=== PATIENT | female | born 2000 | race Caucasian/White ===

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

== ENCOUNTER 2018-11-24 11:10 | Emergency (ER) | payer OTHER ==
[2018-11-24 11:37] VITALS: BP 105/65
--- NOTE | 2018-11-24 12:35 | UC ---
UC General HPI - HPI Summary HPI Summary: pt c/o a sore throat and swollen tonsils since yesterday. + muffled voice. states hx of tonsillitis with muffled voice and often needs steroids and antibiotics. no trouble breathing or swallowing - History of Current Complaint Chief Complaint: UCGeneralIllness Stated Complaint: ST Time Seen by Provider: 11/24/18 12:29 Hx Obtained From: Patient Hx Last Menstrual Period: 11/24/18 Onset/Duration: Gradual Onset Timing: Constant Pain Intensity: 4 Associated Signs & Symptoms: Negative: SOB - Allergy/Home Medications Allergies/Adverse Reactions: Allergies Allergy/AdvReac Type Severity Reaction Status Date / Time No Known Allergies Allergy Verified 11/24/18 11:34 PMH/Surg Hx/FS Hx/Imm Hx Previously Healthy: Yes - Surgical History Surgical History: None - Family History Known Family History: Negative: Cardiac Disease, Hypertension, Diabetes - Social History Occupation: Student Lives: Dormitory/Roommates Alcohol Use: Occasionally Substance Use Type: None Smoking Status (MU): Never Smoked Tobacco - Immunization History Vaccination Up to Date: Yes Review of Systems All Other Systems Reviewed And Are Negative: Yes Constitutional: Negative: Fatigue Skin: Positive: Negative Eyes: Positive: Negative ENT: Positive: Sore Throat Respiratory: Positive: Negative Cardiovascular: Positive: Negative Gastrointestinal: Positive: Negative Genitourinary: Positive: Negative Motor: Positive: Negative Neurovascular: Positive: Negative Musculoskeletal: Positive: Negative Neurological: Positive: Negative Psychological: Positive: Negative Physical Exam Triage Information Reviewed: Yes Appearance: Well-Appearing Vital Signs: Initial Vital Signs Temp 97 F 11/24/18 11:34 Pulse 91 11/24/18 11:34 Resp 17 11/24/18 11:34 BP 105/65 11/24/18 11:34 Pulse Ox 98 11/24/18 11:34 Vital Signs Reviewed: Yes Eyes: Positive: Conjunctiva Clear ENT: Positive: Pharyngeal erythema, TMs normal, Tonsillar swelling - R>L, Tonsillar exudate - R, Muffled voice, Uvula midline. Negative: Nasal congestion , Nasal drainage, Trismus, Hoarse voice Neck: Positive: Supple, Tenderness @ - peritonsilar nodes, Enlarged Nodes @ - peritonsilar nodes Respiratory: Positive: Lungs clear, Normal breath sounds Cardiovascular: Positive: RRR, No Murmur Abdomen Description: Positive: Nontender, No Organomegaly, Soft Bowel Sounds: Positive: Present Musculoskeletal: Positive: ROM Intact Neurological: Positive: Alert Psychological: Positive: Age Appropriate Behavior Skin Exam: Normal Diagnostics - Laboratory Diagnostic Studies Completed/Ordered: rapid strep= Course/Dx - Course Course Of Treatment: no uvular shift or trouble swallowing. there is mild asymmetrical swelling and some muffled voice plus rapid strep is + thus I am going to tx for a bacterial infection and add a steroid for the swelling. There is no concern for an abscess at this time. - Differential Dx - Multi-Symptom Differential Diagnoses: Other - strep throat, pharyngeal cellulitis, abscess. - Diagnoses Provider Diagnosis: Strep throat Discharge - Sign-Out/Discharge Documenting (check all that apply): Patient Departure All imaging exams completed and their final reports reviewed: No Studies - Discharge Plan Condition: Stable Disposition: HOME Prescriptions: Amoxicillin PO (*) [Amoxicillin 875 MG (*)] 875 mg PO BID 10 Days #20 tab predniSONE [Prednisone 20 MG TAB] 40 mg PO DAILY 4 Days #8 tablet Patient Education Materials: Strep Throat (DC) Forms: *School Release Referrals: CHANTEL MORALES [, APPLICATION, OTHER] - 4 Days Additional Instructions: RECHECK IN 4 DAYS. GO TO ER FOR ANY WORSENING. - Billing Disposition and Condition Condition: STABLE Disposition: Home
[2018-11-24] MEDS ORDERED: Dexamethasone TAB* 4 MG PO ONE (12:37)
== END 2018-11-24 13:03 | disposition home or self-care (01) ==
LOC: UCCORT 11:10
DX: J02.0 Streptococcal pharyngitis (principal); H73.893 Other specified disorders of tympanic membrane, bilateral
CPT/HCPCS: 87651; 99212; G0463; J8540